=== PATIENT | female | born 1995 ===

== ENCOUNTER 2017-07-28 02:34 | Emergency (ER) | payer OTHER ==
[2017-07-28 03:03] VITALS: BP 121/76; PULSE 92; RESP 16; TEMP 99.2; O2SAT 100
[2017-07-28] MEDS ORDERED: Sodium Chloride 0.9% 1,000 ML IV STA (03:12)
--- NOTE | 2017-07-28 03:15 | ED PDOC ---
HPI: Abdomen Time Seen by Provider: 07/28/17 03:01 Chief Complaint (Nursing): Female Genitourinary Chief Complaint (Provider): abdominal pain History Per: Patient History/Exam Limitations: no limitations Current Symptoms Are (Timing): Still Present Quality Of Discomfort: "Pain" Associated Symptoms: Nausea, Vomiting, Urinary Symptoms Additional History Per: Patient Additional Complaint(s): 22 y/o female presents with abdominal pain x 4 days. Associated dysuria, back pain. Patient seen at [facility] ED less than 24 hours ago and diagnosed with UTI and given macrobid dose in ED with prescription to continue. Patient states she felt better upon waking up but notes symptoms to have worsened tonight. Patient notes one episode of vomiting prior to arrival. Denies fever, chest pain, shortness of breath, palpitations, heamturia, vaginal bleeding/discharge. Past Medical History Reviewed: Historical Data, Nursing Documentation, Vital Signs Vital Signs: Last Vital Signs Temp 99.2 F 07/28/17 02:59 Pulse 92 H 07/28/17 02:59 Resp 16 07/28/17 02:59 BP 121/76 07/28/17 02:59 Pulse Ox 100 07/28/17 04:46 - Medical History PMH: No Chronic Diseases - Surgical History Surgical History: No Surg Hx - Family History Family History: States: Unknown Family Hx - Immunization History Hx Tetanus Toxoid Vaccination: Yes Hx Influenza Vaccination: No Hx Pneumococcal Vaccination: No - Home Medications Home Medications: Ambulatory Orders Medication Instructions Recorded Nitrofurantoin Macrocrystals 1 cap PO BID #14 cap 07/27/17 [Macrobid] Naproxen [Naprosyn] 500 mg PO Q12 PRN #20 tablet 07/28/17 Sulfamethoxazole/Trimethoprim 1 tab PO BID #20 tab 07/28/17 [Bactrim DS 800 mg-160 mg] - Allergies Allergies/Adverse Reactions: Allergies Allergy/AdvReac Type Severity Reaction Status Date / Time No Known Allergies Allergy Verified 07/28/17 02:58 Review of Systems ROS Statement: Except As Marked, All Systems Reviewed And Found Negative Gastrointestinal: Positive for: Abdominal Pain Genitourinary Female: Positive for: Dysuria Physical Exam - Reviewed Nursing Documentation Reviewed: Yes Vital Signs Reviewed: Yes - Physical Exam Appears: Positive for: Well, Non-toxic, Uncomfortable Head Exam: Positive for: ATRAUMATIC, NORMAL INSPECTION, NORMOCEPHALIC Skin: Positive for: Normal Color Eye Exam: Positive for: Normal appearance ENT: Positive for: Normal ENT Inspection Cardiovascular/Chest: Positive for: Regular Rate, Rhythm Respiratory: Positive for: Normal Breath Sounds Gastrointestinal/Abdominal: Positive for: Normal Exam, Bowel Sounds, Soft, Tenderness (bilateral flank, diffuse lower) Back: Positive for: L CVA Tenderness, R CVA Tenderness Extremity: Positive for: Normal ROM Neurologic/Psych: Positive for: Alert, Oriented - Laboratory Results Result Diagrams: 07/28/17 03:36 07/28/17 03:36 - ECG O2 Sat by Pulse Oximetry: 100 - Progress ED Course And Treament: will repeat labs/urine Patient educated on findings, IV rocephin dose given. Rx bactrim DS given with instructions to use instead of macrobid to treat for clinical pyelonephritis. Advised follow up PMD 2-3 days. Rx ibuprofen given Return to ED for worsening/concerning symptoms. Disposition - Clinical Impression Clinical Impression: Pyelonephritis - Patient ED Disposition Is Patient to be Admitted: No Counseled Patient/Family Regarding: Studies Performed, Diagnosis, Need For Followup, Rx Given - Disposition Referrals: Shaik Granger MD [Primary Care Provider] - Disposition: Routine/Home Disposition Time: 05:14 Condition: IMPROVED Prescriptions: Naproxen [Naprosyn] 500 mg PO Q12 PRN #20 tablet PRN Reason: Pain, Moderate (4-7) Sulfamethoxazole/Trimethoprim [Bactrim DS 800 mg-160 mg] 1 tab PO BID #20 tab Instructions: Acute Pyelonephritis (ED)
[2017-07-28 03:40] LABS: BASO # 0.1 K/uL (0.0-0.2); BASO % 0.5 % (0.0-2.0); EOS # 0.3 K/uL (0.0-0.7); EOS % 2.4 % (0.0-4.0); HEMATOCRIT 39.4 % (34.0-47.0); LYMPH # 2.1 K/uL (1.0-4.3); LYMPH % 18.7 % (20.0-40.0); MEAN CELL VOLUME 87.5 fl (81.0-99.0); MEAN CORPUSCULAR HEMOGLOBIN 30.1 pg (27.0-31.0); MEAN CORPUSCULAR HGB CONC 34.4 g/dL (33.0-37.0); MEAN PLATELET VOLUME 9.9 fl (7.2-11.7); MONO # 0.8 K/uL (0.0-0.8); MONO % 7.2 % (0.0-10.0); NEUT # 7.9 K/uL (1.8-7.0); NEUT % 71.2 % (50.0-75.0); RED CELL DISTRIBUTION WIDTH 13.7 % (11.5-14.5); WHITE BLOOD COUNT 11.1 K/uL (4.8-10.8)
[2017-07-28 03:52] LABS: ALB/GLOB RATIO 1.2 (1.0-2.1); ALKALINE PHOSPHATASE 88 U/L (38-126); ALT/SGPT 45 U/L (9-52); AST/SGOT 39 U/L (14-36); BILIRUBIN,TOTAL 0.8 mg/dl (0.2-1.3); BLOOD UREA NITROGEN 10 mg/dl (7-17); CALCIUM 9.5 mg/dL (8.4-10.2); CARBON DIOXIDE 28 mmol/L (22-30); CHLORIDE 104 mmol/L (98-107); GFR AFRICAN-AMERICAN > 60; GLUCOSE,RANDOM 92 mg/dL (65-105); POTASSIUM 3.9 MMOL/L (3.6-5.0); RBC URINE 3 /hpf (0-3); SODIUM 145 mmol/l (132-148); TOTAL PROTEIN 8.2 G/DL (6.3-8.2); URINE BACTERIA OCC (<OCC); URINE BILIRUBIN NEGATIVE (NEGATIVE); URINE BLOOD MODERATE (NEGATIVE); URINE COLOR YELLOW (YELLOW); URINE GLUCOSE (UA) NEG (Normal); URINE KETONE NEGATIVE (NEGATIVE); URINE LEUKOCYTE ESTERASE LARGE Leu/uL (Negative); URINE PROTEIN NEGATIVE (NEGATIVE); URINE UROBILINOGEN 0.2-1.0 mg/dL (0.2-1.0); WBC CLUMPS FEW /hpf; WBC URINE 105 /hpf (0-5)
[2017-07-28] MEDS ORDERED: cefTRIAXone (Rocephin) 1 gm Inj ONE (04:17)
== END 2017-07-28 05:45 | disposition home or self-care (01) ==
LOC: H.ER 02:34
DX: N10 Acute pyelonephritis (principal)
CPT/HCPCS: 80053; 81003; 83690; 85025; 87086; 96374; 96375; 99283; J0696; J1885; J7040